=== PATIENT | male | born 1955 | race African-American/Black ===

== ENCOUNTER 2018-10-30 03:00 | Emergency (ER) | payer MEDICAID ==
[~2018-10-30] VITALS: Ht 167.6 cm; Wt 87.5 kg
[2018-10-30] MEDS ORDERED: KETOROLAC 30MG/ML VIAL IV ONE (04:00)
[2018-10-30 04:51] LABS: BASOPHILS % 0.4 % (0.0-2.0); EOSINOPHILS % 2.1 % (0.0-5.0); HEMATOCRIT. 41.8 % (42.0-52.0); HEMOGLOBIN. 14.4 g/dL (14.0-18.0); LYMPHOCYTES % 19.3 % (20.0-50.0); MEAN CORPUSCULAR HEMOGLOBIN 33.1 pg (28.0-32.0); MEAN CORPUSCULAR VOLUME 95.8 fL (80.0-94.0); MEAN PLATELET VOLUME 7.2 fl (7.4-10.4); MONOCYTES % 10.4 % (2.0-8.0); NEUTROPHILS % 67.8 % (40.0-76.0); PLATELET 193 x1000/uL (130-400); RED BLOOD CELL COUNT 4.37 mill/uL (4.7-6.1); RED CELL DISTRIBUTION WIDTH 13.1 % (11.6-14.6)
[2018-10-30 05:01] LABS: CHLORIDE 109 mEq/L (98-107)
[2018-10-30] MEDS ORDERED: LEVOFLOXACIN 250MG TABLET PO ONE (05:30)
[2018-10-30 06:00] VITALS: BP 135/80
== END 2018-10-30 10:28 | disposition home or self-care (01) ==
LOC: ER 10:26
DX: J18.9 Pneumonia, unspecified organism (principal); Z87.891 Personal history of nicotine dependence; Z98.890 Other specified postprocedural states
CPT/HCPCS: 36415; 71045; 84484; 93005; 99284